=== PATIENT | male | born 1955 | race Caucasian/White ===

== ENCOUNTER → 2018-02-09 10:01 | Outpatient (CLI) | payer OTHER, SELFPAY ==
--- NOTE | 2018-02-09 | DI.MRI.S_ITS ---
PROCEDURE: MR BRAIN (IAC) WWO CON INDICATIONS: VERTIGO OF LEFT EAR/TINNITUS/MEMORY PROBLEM TECHNIQUE: Noncontrast sagittal T1 spin echo, axial FLAIR, axial gradient echo, axial diffusion and ADC through the brain. Axial thin-slice 3D CISS, coronal TruFISP, axial T1 spin echo with fat saturation through the internal auditory canals. After the administration of contrast, thin slice axial and coronal T1 spin echo with fat saturation through the internal auditory canals, and axial T1 spin echo with fat saturation through the brain. COMPARISON: None. FINDINGS: Image quality: Excellent. Cerebellopontine angles: No cerebellopontine angle masses. Inner ear structures appear normally formed. No suspicious enhancement in the internal auditory canal or along the course of the 7th cranial nerve. Note is made that the paired basilar arteries are tortuous, and deviates leftward but do not appear to directly impinge upon the normal course of the left seventh and eighth cranial nerves. The dural sinus outflow is asymmetrically larger on the left than the right, passing in proximity to the seventh and eighth cranial nerves but not directly impinging upon these structures. CSF spaces: Ventricles are normal in size and shape. No extra-axial fluid collections. Basal cisterns are patent. Brain: No intracranial bleeds or mass effects. Moise-white matter interface is intact. No abnormal intracranial enhancement. Diffusion weighted images demonstrate no acute ischemic insults. Brainstem appears normal. Normal intravascular flow voids are present. Skull and face: Calvarial marrow signal is normal. Orbits appear normal. Sinuses: Sinuses and mastoids are clear. IMPRESSION: A source of asymmetric tinnitus on the left with reported vertigo this not identified. As noted, both arterial and venous structures in proximity to the left seventh and eighth cranial nerves are asymmetrically prominent on the left, but not in direct impingement with these neural structures. Elsewhere through the brain parenchyma is no sign of mass or stroke, and only minimal microvascular atherosclerotic change is identified within the deep white matter hemisphere. The mastoid air cells appear normal, symmetric, at the skull base. Dictated by: Clint Urbano M.D. on 02/09/2018 at 11:45 Approved by: Clint Urbano M.D. on 02/09/2018 at 11:54
== END ==
DX: H93.12 Tinnitus, left ear (principal); R42 Dizziness and giddiness; R41.3 Other amnesia
CPT/HCPCS: 70553